=== PATIENT | male | born 1955 | race Caucasian/White ===

== ENCOUNTER → 2017-06-26 | Outpatient (REF) | payer MEDICARE ==
[2017-06-26 17:57] LABS: BASO # 0.1 10^3/uL (0.0-0.2); EOS # 0.2 10^3/uL (0.0-0.50); EOS % 2.8 % (0.0-3.0); HEMATOCRIT 46.6 % (42.0-52.0); HEMOGLOBIN 15.5 g/dl (13.5-17.5); IMMATURE GRANULOCYTE % 1.2 % (0-3.0); LYMPH # 1.8 10^3/uL (1.5-4.5); LYMPH % 22.2 % (24.0-44.0); MEAN CORPUSCULAR HEMOGLOBIN 29.4 pg (27.0-33.0); MEAN CORPUSCULAR HGB CONC 33.3 g/dl (32.0-36.5); MEAN CORPUSCULAR VOLUME 88.3 fl (80.0-96.0); MONO # 0.4 10^3/uL (0.0-0.8); MONO % 5.4 % (0.0-5.0); NEUTROPHILS # 5.5 10^3/uL (1.8-7.7); NEUTROPHILS % 67.4 % (36.0-66.0); PLATELET COUNT, AUTOMATED 234 10^3/uL (150-450); RED BLOOD COUNT 5.28 10^6/uL (4.30-6.10); RED CELL DISTRIBUTION WIDTH 13.6 % (11.5-14.5); WHITE BLOOD COUNT 8.2 10^3/uL (4.0-10.0)
[2017-06-26 18:10] LABS: ALBUMIN 4.4 GM/DL (3.2-5.2); ALBUMIN/GLOBULIN RATIO 1.22 (1.00-1.93); ALKALINE PHOSPHATASE 61 U/L (45-117); ALT/SGPT 34 U/L (12-78); ANION GAP 7 MEQ/L (8-16); AST/SGOT 18 U/L (7-37); BILIRUBIN,TOTAL 0.5 MG/DL (0.2-1.0); BLOOD UREA NITROGEN 18 MG/DL (7-18); CALCIUM LEVEL 8.7 MG/DL (8.5-10.1); CARBON DIOXIDE LEVEL 26 MEQ/L (21-32); CHLORIDE LEVEL 106 MEQ/L (98-107); CREATININE FOR GFR 1.31 MG/DL (0.70-1.30); FERRITIN 107 NG/ML (26-388); FREE T4 1.13 NG/DL (0.76-1.46); GLOMERULAR FILTRATION RATE 59.6 (>56); GLUCOSE, FASTING 88 MG/DL (70-100); IRON (FE) 84 UG/DL (65-175); PERCENT SATURATION 23.8 % (19.7-50.0); POTASSIUM SERUM 4.1 MEQ/L (3.5-5.1); RHEUMATOID FACTOR QUANT < 10.0 IU/ML (<15.0); SODIUM LEVEL 139 MEQ/L (136-145); TOTAL IRON BINDING CAPACITY 353 UG/DL (250-450)
[2017-06-26 18:11] LABS: FOLATE 22.3 NG/ML; VITAMIN B12 LEVEL 881 PG/ML
[2017-06-26 19:22] LABS: ESTIMATED AVERAGE GLUCOSE 105 MG/DL (60-110); HEMOGLOBIN A1c 5.3 %
[2017-06-26 21:03] LABS: ERYTHROCYTE SEDIMENTATION RATE 2 mm/hr (0-20)
[2017-06-30 11:01] LABS: ALBUMIN 4.95 GM/DL (3.29-5.55); ALBUMIN % 61.9 % (55.8-66.1); ALPHA-1-GLOBULIN % 2.9 % (2.9-4.9); ALPHA-1-GLOBULINS 0.23 GM/DL (0.17-0.41); ALPHA-2-GLOBULINS 0.74 GM/DL (0.42-0.99)
[2017-06-30 11:02] LABS: ALPHA-2-GLOBULINS % 9.3 % (7.1-11.8); BETA-1-GLOBULINS % 6.2 % (4.7-7.2); BETA-2-GLOBULINS 0.37 GM/DL (0.19-0.55); BETA-2-GLOBULINS % 4.6 % (3.2-6.5); GAMMA GLOBULIN % 15.1 % (11.1-18.8); GAMMA GLOBULINS 1.21 GM/DL (0.65-1.58)
[2017-06-30 13:14] LABS: IMMUNOTYPING SERUM IGG ABNORMAL (NORMAL); IMMUNOTYPING SERUM LAMBDA ABNORMAL (NORMAL)
[2017-07-03 00:07] LABS: ANTINUCLEAR ANTIBODIES DIRECT Negative (Negative); CERULOPLASMIN 22.9 mg/dL (16.0-31.0); COPPER PLASMA 93 ug/dL (72-166); LEAD BLOOD ADULT <1 ug/dL (0-19); Lyme Disease IgG/IgM Antibodie <0.91 ISR (0.00-0.90); Lyme Disease IgM Ab Quantitati <0.80 index (0.00-0.79); MERCURY LEVEL 1.8 ug/L (0.0-14.9); VITAMIN B1 LEVEL WHOLE BLOOD 139.8 nmol/L (66.5-200.0); VITAMIN B6,PYRIDOXAL PHOSPHATE 51.1 ug/L (5.3-46.7); VITAMIN E(ALPHA TOCOPHEROL) 18.8 mg/L (7.0-25.1)
== END ==
LOC: M LABNEURO 11:42
DX: G25.81 Restless legs syndrome (principal); R20.0 Anesthesia of skin; E07.9 Disorder of thyroid, unspecified; E61.1 Iron deficiency; E61.0 Copper deficiency; Z13.1 Encounter for screening for diabetes mellitus; T56.0X1D Toxic effect of lead and its compounds, accidental (unintentional), subsequent encounter; T56 Toxic effect of metals; Z79.899 Other long term (current) drug therapy
CPT/HCPCS: 82525